=== PATIENT | male | born 1995 | race Caucasian/White ===

== ENCOUNTER 2020-08-29 17:52 | Inpatient (IN) ==
[2020-08-29 18:51] LABS: Albumin Level 4.2 gm/dl (3.4-5.0); Calcium 8.9 mg/dl (8.5-10.1); Est GFR (African American) 113.8; Est GFR (Non-African American) 98.2; Potassium 3.5 mmol/L (3.5-5.1)
[2020-08-29 19:01] LABS: Appearance Urine Clear (Clear); Bilirubin Urine Negative (Negative); Blood Urine Negative (Negative); Color Urine Yellow; Glucose Urine UA Negative (Negative); Ketones Urine Negative (Negative); Leukocyte Esterase Urine Negative (Negative); Nitrite Urine Negative (Negative); Protein Urine Negative (Negative); Specific Gravity Urine 1.028 (1.000-1.030); Urobilinogen Urine Negative (Negative); pH Urine 6.5 (4.5-7.5)
[2020-08-29 19:02] LABS: Albumin Globulin Ratio 1.4 (0.9-2); Bilirubin,Total 0.4 mg/dl (0.2-1); Globulin 3.1 gm/dl (2.5-4.0); Thyroid Stimulating Hormone 0.846 uIu/ml (0.300-4.500); Total Protein 7.3 gm/dl (6.4-8.2)
--- NOTE | 2020-08-29 19:02 | Emergency Department Note ---
History of Present Illness General Chief complaint: Mental Health Evaluation Stated complaint: MENTAL HEALTH, SUICIDAL THOUGHTS Time Seen by Provider: 08/29/20 18:04 Source: patient Mode of arrival: EMS Limitations: no limitations History of Present Illness Provider complaint: Suicidal ideation Maximum Pain Intensity: 0 This is a 25-year-old male who presents to the ED with a chief complaint of suicidal ideation. The mental health manager of case management here was contacted by caps. The patient has been seeing his counselor and recently did not perform well on a graduate review for his PhD and is not doing as well as he would like in school. He reported that he was suicidal with a plan of carbon monoxide poisoning. He states that he is feeling a little better now. He is made the statements yesterday. He was referred here for some inpatient evaluation due to his recent suicidal ideation. Patient has no other complaints at this time. He is on his computer doing some homework. Home Medications Home Medications Medication Instructions Recorded Confirmed Type No Known Home Medications 08/29/20 08/29/20 History Past Med/Surg History Social History Smoking Status: Current every day smoker Tobacco Type: Cigarettes Preferred Language: Chadian Feels Safe at Home: Yes Review of Systems A total of 10 systems reviewed and were otherwise negative Physical Exam Vital Signs Vital Signs - 24 hr 08/29/20 17:57 08/29/20 19:51 Temperature 37 C 36.9 C Temperature Source Oral Oral Pulse Rate 88 Pulse Rate [Left Finger] 64 Respiratory Rate 16 18 Respiratory Effort / Characteristics Non-Labored Spontaneous Respiratory Depth Normal Normal Respiratory Pattern Regular Blood Pressure 131/86 Blood Pressure [Left Arm] 127/84 Blood Pressure Mean 101 Blood Pressure Mean [Left Arm] 98 Blood Pressure Position Sitting Pulse Oximetry 96 95 Oxygen Delivery Method Room Air Room Air Sepsis Recent Fever Within 48 Hours No Sepsis New/Unexplained Change in Mental Status N/A Sepsis Action Taken by Nursing No Action Required CONSTITUTIONAL/VITAL SIGNS: Reviewed / noted above. GENERAL: Non-toxic in appearance. INTEGUMENTARY: Warm, dry, and [place]. HEAD: Normocephalic. EYES: without scleral icterus or trauma. ENT/OROPHARYNX: clear and moist. LYMPHADENOPATHY/NECK: Is supple without lymphadenopathy or meningismus. RESPIRATORY: Lungs clear and equal. CARDIOVASCULAR: Regular rate and rhythm. GI/ABDOMEN: Soft and nontender. No organomegaly or pulsatile mass. No rebound or guarding. Normal bowel sounds. EXTREMITIES: Warm and well perfused. BACK: No CVA tenderness. NEUROLOGICAL: Intact without focal deficits. PSYCHIATRIC: normal affect. MUSCULOSKELETAL: Normally developed with good muscle tone. TRIAGE NURSING DOCUMENTATION REVIEWED. Medical Decision Making Differential Diagnosis Differential includes toxic ingestions, self-mutilation, suicidal ideation, suicide attempt, depression. Medical Records Attestation: I reviewed the patient's medical records. Home Medications Current Medication List: was personally reviewed by me Laboratory Data Attestation: I reviewed the patient's lab results. Result diagrams: 08/29/20 18:22 08/29/20 18:22 Lab Results 08/29/20 08/29/20 08/29/20 Range/Units 18:22 18:22 18:22 WBC 9.30 (4.8-10.8) K/uL RBC 5.49 (4.7-6.1) M/uL Hgb 17.0 (14.0-18.0) g/dL Hct 48.5 (42-52) % MCV 88.3 (80-100) fL MCH 31.0 (25-34) pg MCHC 35.1 (32-36) g/dL RDW Std Deviation 39.0 (36.4-46.3) fL RDW Coeff of Jett 12.2 (11.5-14.5) % Plt Count 244 (130-400) K/uL MPV 11.2 H (7.4-10.4) fL Immature Gran % (Auto) 0.5 % Neut % (Auto) 75.2 % Lymph % (Auto) 16.2 % Pike % (Auto) 7.0 % Eos % (Auto) 0.9 % Baso % (Auto) 0.2 % Neut # (Auto) 6.99 H (1.4-6.5) K/uL Lymph # (Auto) 1.51 (1.2-3.4) K/uL Pike # (Auto) 0.65 H (0.11-0.59) K/uL Eos # (Auto) 0.08 (0-0.5) K/uL Baso # (Auto) 0.02 (0-0.2) K/uL Immature Gran # (Auto) 0.05 H (0.00-0.02) K/uL Sodium 140 (136-145) mmol/L Potassium 3.5 (3.5-5.1) mmol/L Chloride 108 H (98-107) mmol/L Carbon Dioxide 26 (21-32) mmol/L Anion Gap 6.0 (3-11) BUN 12 (7-18) mg/dl Creatinine 1.05 (0.6-1.4) mg/dl Est Cr Clr Drug Dosing 104.0 ml/min Est GFR ( Amer) 113.8 Est GFR (Non-Af Amer) 98.2 BUN/Creatinine Ratio 11.0 (10-20) Glucose 123 H (70-99) mg/dl Calcium 8.9 (8.5-10.1) mg/dl Total Bilirubin 0.4 (0.2-1) mg/dl AST 10 L (15-37) U/L ALT 25 (12-78) U/L Alkaline Phosphatase 74 (45-117) U/L Total Protein 7.3 (6.4-8.2) gm/dl Albumin 4.2 (3.4-5.0) gm/dl Globulin 3.1 (2.5-4.0) gm/dl Albumin/Globulin Ratio 1.4 (0.9-2) TSH 0.846 (0.300-4.500) uIu/ml Urine Color Urine Appearance (Clear) Urine pH (4.5-7.5) Ur Specific [place] (1.000-1.030) Urine Protein (Negative) Urine Glucose (UA) (Negative) Urine Ketones (Negative) Urine Blood (Negative) Urine Nitrite (Negative) Urine Bilirubin (Negative) Urine Urobilinogen (Negative) Ur Leukocyte Esterase (Negative) Salicylates < 1.7 L (2.8-20) mg/dl Urine Opiates Screen (Neg) Ur Methadone, Qual (Neg) Acetaminophen < 2 L (10-30) ug/ml Urine Barbiturates (Neg) Ur Phencyclidine (PCP) (Neg) U Amphetamin/Meth Scrn (Neg) MDMA (Ecstasy) Screen (Neg) U Benzodiazepines Scrn (Neg) Ur Cocaine Metabolite (Neg) U Marijuana (THC) Screen (Neg) Ethyl Alcohol mg/dL (0-3) mg/dl COVID-19 Eval Order SARS-CoV-2, RNA, NAAT (NEGATIVE) 08/29/20 08/29/20 08/29/20 Range/Units 18:22 18:45 18:45 WBC (4.8-10.8) K/uL RBC (4.7-6.1) M/uL Hgb (14.0-18.0) g/dL Hct (42-52) % MCV (80-100) fL MCH (25-34) pg MCHC (32-36) g/dL RDW Std Deviation (36.4-46.3) fL RDW Coeff of Jett (11.5-14.5) % Plt Count (130-400) K/uL MPV (7.4-10.4) fL Immature Gran % (Auto) % Neut % (Auto) % Lymph % (Auto) % [place]ike % (Auto) % Eos % (Auto) % Baso % (Auto) % Neut # (Auto) (1.4-6.5) K/uL Lymph # (Auto) (1.2-3.4) K/uL Pike # (Auto) (0.11-0.59) K/uL Eos # (Auto) (0-0.5) K/uL Baso # (Auto) (0-0.2) K/uL Immature Gran # (Auto) (0.00-0.02) K/uL Sodium (136-145) mmol/L Potassium (3.5-5.1) mmol/L Chloride (98-107) mmol/L Carbon Dioxide (21-32) mmol/L Anion Gap (3-11) BUN (7-18) mg/dl Creatinine (0.6-1.4) mg/dl Est Cr Clr Drug Dosing ml/min Est GFR ( Amer) Est GFR (Non-Af Amer) BUN/Creatinine Ratio (10-20) Glucose (70-99) mg/dl Calcium (8.5-10.1) mg/dl Total Bilirubin (0.2-1) mg/dl AST (15-37) U/L ALT (12-78) U/L Alkaline Phosphatase (45-117) U/L Total Protein (6.4-8.2) gm/dl Albumin (3.4-5.0) gm/dl Globulin (2.5-4.0) gm/dl Albumin/Globulin Ratio (0.9-2) TSH (0.300-4.500) uIu/ml Urine Color Yellow Urine Appearance Clear (Clear) Urine pH 6.5 (4.5-7.5) Ur Specific [place] 1.028 (1.000-1.030) Urine Protein Negative (Negative) Urine Glucose (UA) Negative (Negative) Urine Ketones Negative (Negative) Urine Blood Negative (Negative) Urine Nitrite Negative (Negative) Urine Bilirubin Negative (Negative) Urine Urobilinogen Negative (Negative) Ur Leukocyte Esterase Negative (Negative) Salicylates (2.8-20) mg/dl Urine Opiates Screen Neg (Neg) Ur Methadone, Qual Neg (Neg) Acetaminophen (10-30) ug/ml Urine Barbiturates Neg (Neg) Ur Phencyclidine (PCP) Neg (Neg) U Amphetamin/Meth Scrn Neg (Neg) MDMA (Ecstasy) Screen Neg (Neg) U Benzodiazepines Scrn Neg (Neg) Ur Cocaine Metabolite Neg (Neg) U Marijuana (THC) Screen Neg (Neg) Ethyl Alcohol mg/dL < 3.0 (0-3) mg/dl COVID-19 Eval Order SARS-CoV-2, RNA, NAAT (NEGATIVE) 08/29/20 08/29/20 Range/Units 20:35 20:35 WBC (4.8-10.8) K/uL RBC (4.7-6.1) M/uL Hgb (14.0-18.0) g/dL Hct (42-52) % MCV (80-100) fL MCH (25-34) pg MCHC (32-36) g/dL RDW Std Deviation (36.4-46.3) fL RDW Coeff of Jett (11.5-14.5) % Plt Count (130-400) K/uL MPV (7.4-10.4) fL Immature Gran % (Auto) % Neut % (Auto) % Lymph % (Auto) % [place] % (Auto) % Eos % (Auto) % Baso % (Auto) % Neut # (Auto) (1.4-6.5) K/uL Lymph # (Auto) (1.2-3.4) K/uL [place] # (Auto) (0.11-0.59) K/uL Eos # (Auto) (0-0.5) K/uL Baso # (Auto) (0-0.2) K/uL Immature Gran # (Auto) (0.00-0.02) K/uL Sodium (136-145) mmol/L Potassium (3.5-5.1) mmol/L Chloride (98-107) mmol/L Carbon Dioxide (21-32) mmol/L Anion Gap (3-11) BUN (7-18) mg/dl Creatinine (0.6-1.4) mg/dl Est Cr Clr Drug Dosing ml/min Est GFR ( Amer) Est GFR (Non-Af Amer) BUN/Creatinine Ratio (10-20) Glucose (70-99) mg/dl Calcium (8.5-10.1) mg/dl Total Bilirubin (0.2-1) mg/dl AST (15-37) U/L ALT (12-78) U/L Alkaline Phosphatase (45-117) U/L Total Protein (6.4-8.2) gm/dl Albumin (3.4-5.0) gm/dl Globulin (2.5-4.0) gm/dl Albumin/Globulin Ratio (0.9-2) TSH (0.300-4.500) uIu/ml Urine Color Urine Appearance (Clear) Urine pH (4.5-7.5) Ur Specific [place] (1.000-1.030) Urine Protein (Negative) Urine Glucose (UA) (Negative) Urine Ketones (Negative) Urine Blood (Negative) Urine Nitrite (Negative) Urine Bilirubin (Negative) Urine Urobilinogen (Negative) Ur Leukocyte Esterase (Negative) Salicylates (2.8-20) mg/dl Urine Opiates Screen (Neg) Ur Methadone, Qual (Neg) Acetaminophen (10-30) ug/ml Urine Barbiturates (Neg) Ur Phencyclidine (PCP) (Neg) U Amphetamin/Meth Scrn (Neg) MDMA (Ecstasy) Screen (Neg) U Benzodiazepines Scrn (Neg) Ur Cocaine Metabolite (Neg) U Marijuana (THC) Screen (Neg) Ethyl Alcohol mg/dL (0-3) mg/dl COVID-19 [facility], RNA, NAAT NEGATIVE (NEGATIVE) MDM Narrative Patient presents with some suicidal ideation as detailed above. He is currently cooperative and is willing to stay in the hospital. He is doing his homework. His exam was unremarkable. He was medically cleared. Blood work was unremarkable. Talk screen was negative. The patient was admitted to [facility]. Impression & Plan Depression with suicidal ideation Discharge Plan Visit Data Chief Complaint: Mental Health Evaluation Stated Complaint: MENTAL HEALTH, SUICIDAL THOUGHTS ED Provider: Kip Funk Discharge Problem: Depression with suicidal ideation Patient Disposition: Transfer Behavioral Health Fac Forms Stand Alone Forms: [facility], Suicide Prevention Resources Prescriptions Prescriptions: No Action No Known Home Medications RF: 0 Referrals [facility] [Primary Care Provider[facility] -
[2020-08-29 19:10] LABS: Basophils # (auto) 0.02 K/uL (0-0.2); Basophils % (auto) 0.2 %; Eosinophils # (auto) 0.08 K/uL (0-0.5); Eosinophils % (auto) 0.9 %; Hematocrit (blood only) 48.5 % (42-52); Immature Granulocytes # (auto) 0.05 K/uL (0.00-0.02); Immature Granulocytes % (auto) 0.5 %; Lymphocytes # (auto) 1.51 K/uL (1.2-3.4); Lymphocytes % (auto) 16.2 %; Mean Corpuscular Hgb Conc 35.1 g/dL (32-36); Mean Corpuscular Volume 88.3 fL (80-100); Mean Platelet Volume 11.2 fL (7.4-10.4); Monocytes # (auto) 0.65 K/uL (0.11-0.59); Neutrophils # (auto) 6.99 K/uL (1.4-6.5); Neutrophils % (auto) 75.2 %; Platelet Count 244 K/uL (130-400); RDW Coefficient of Variation 12.2 % (11.5-14.5); Red Blood Count 5.49 M/uL (4.7-6.1)
[2020-08-29 19:16] LABS: Acetaminophen < 2 ug/ml (10-30); Salicylate < 1.7 mg/dl (2.8-20)
[2020-08-29 19:19] LABS: Amphetamines+Metham, Urine Neg (Neg); Barbiturates, Urine Neg (Neg); Benzodiazepine, Urine Neg (Neg); Cocaine, Urine Neg (Neg); MDMA (Ecstacy), Urine Neg (Neg); Methadone, Urine Neg (Neg); Opiate, Urine Neg (Neg); Phencyclidine, Urine Neg (Neg)
[2020-08-29] MEDS ORDERED: SODIUM CHLORIDE 0.65% NA SOLN 45 ML (OCEAN) PRN (21:37)
[2020-08-29] MEDS ORDERED: hydrOXYzine HCl 25 MG TAB PO PRN ×2 (21:37)
[2020-08-29] MEDS ORDERED: ALUMINUM/MAGNESIUM SUSP 30 ML UDC PO PRN (21:37)
[2020-08-29] MEDS ORDERED: ACETAMINOPHEN 325 MG TAB PO PRN (21:37)
[2020-08-29] MEDS ORDERED: MAGNESIUM HYDROXIDE SUSP 30 ML UDC PO PRN (21:37)
[2020-08-29] MEDS ORDERED: BISMUTH SUBSALICYLATE LIQD 236 ML PO PRN (21:37)
[2020-08-29 22:44] VITALS: O2SAT 98
--- NOTE | 2020-08-30 07:59 | History & Physical ---
Date of Service August 30, 2020 Impression / Recommendations Impression 25 y/u male with a history of depression since fall 2018 who just started treatment with therapist last month, and is admitted with worsening depression and SI with multiple plans in the context of school and relationship stress. He is socially isolated here, as all supports are in [place]. He is concerned about not making enough money to get and provide for himself and his girlfriend/future . Inpatient treatment is medically necessary due to severity of symptoms and risk for suicide if discharged. (1) Suicidal ideation: 08/30 - Continue voluntary hospitalization and suicide checks for safety - Encouraged group attendance and participation, work on healthy coping skills and discharge safety plan. - Recommend family meeting with parents who live in [place]. (2) Depression: 08/30 - Reviewed diagnosis and treatment options, including medications and therapy. Discussed SSRIs, including escitalopram and sertraline. Reviewed risks, benefits, side effects, and what to expect from medication. He agreed to a trial of escitalopram, will start 10mg daily. - Reviewed sleep hygiene, and trial hydroxyzine 50mg hs. - Refer for outpatient psychiatric care, and coordinate with [facility] therapist. Depression Type: major depressive disorder Major depression recurrence: single episode Active/Remission status: currently active Major depression episode severity: severe Psychotic features: without psychotic features Qualified Code(s): F32.2 - Major depressive disorder, single episode, severe without psychotic features Risk Factors Assessment Male: Yes : No Do You Have Access To A Gun?: No Health Problems: No Mental Health Diagnoses: Yes Substance Use Disorders: No Previous Attempt: No Previous Psychiatric Hospitalization: No Hopelessness: Yes Smoker: Yes Protective Factors Assessment : No Responsible for Young Children: No Employed: No Stable Relationships: Yes Supportive Family: Yes Psychiatric History Identifying Data GRAHAM 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 Chief Complaint "The situation went pretty bad this week, so the therapist suggested that hospitalization should be the next step". History of Present Illness Patient presented to the ER on referral from [facility], after he reported suicidal thoughts with a plan to by carbon monoxide poisoning. He reports depression since fall 2018, with stress related to school and a recent meeting with her advisor where he was told he would lose his funding if he did not improve his work. He reported poor sleep and appetite, increased alcohol use (recently started drinking alone at home), low motivation, procrastination, negative thoughts, worthlessness, and thoughts to self injure by burning himself with cigarettes. 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 His therapist at [facility] completed a petitioning statement, but he agreed to sign in voluntarily. [facility] records reviewed; patient initially seen 08/07/2020 and has had 3 sessions, reported he was dwelling on negative thoughts since the fall, and was having difficulty focusing and completing tasks. 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 He reported stressors related to discrimination against [place] people, particularly on social media, related to the pandemic, which he dwells on for hours at a time. He registered for classes late in winter 2018, after a hold was placed on his account, and missed some classes. He is in a relationship X 6 years but his girlfriend is in [place] and he noted a sense of responsibility and difficulty supporting her from the [place]. His grandmother and grandfather in early 2019. He reported suicidal thoughts going on for 5 weeks, with thoughts to send a "last will" to his parents and girlfriend, and then poison himself with carbon monoxide, or to drive to a forest and hang himself or cut his wrists. Parents and girlfriend are protective. On my assessment he reports he saw his [facility] therapist yesterday and was feeling more suicidal after a meeting with his advisor the day prior did not go well. He had "a strong urge for suicide and hurting myself," and sleep has been poor for the past 1-2 months, recently getting only 2-3 hours a night. He denies access to guns and states that if he did have guns, "you probably wouldn't be talking to me right now." He ruminates at night, and also read on his cell phone. Appetite is decreased but he has gained a couple lbs. He reports anxiety related to not being able to perform well in school, no panic attacks. He reports perfectionistic tendencies, which can slow his work pace at times. Denies excessive cleaning, checking, bathing. He denies any history of marek, psychosis, PTSD. Denies thoughts of harming others and history of violence. Stressors including academic performance, and worries that he doesn't have enough money/income to get next summer as he has planned. He reports feeling "triggered" when his girlfriend sent him an article about a 22 y/o who was able to buy a house in [facility] and he felt it was "a punch in a face" as this person was able to buy a house in an expensive city and "I'm just here, doing nothing." He has good supports from friends, family and girlfriend, but all are in [place]. No local supports locally. His treatment goals are "to find out if I really have some depression, and do something for sleep." Past Psychiatric History Previous Psych History: Has never seen a psychiatrist or taken medications before. Just started therapy in 2019. Current Psychiatric Diagnosis: Depression Outpatient Services: Darrick rae at [facility]. Previous Psych Admissions: Denies Do You Have Access To A Gun?: No History of Previous Suicide Attempt: No Past Medication Trials: None Home Medications Home Medications Medication Instructions Recorded Confirmed Type No Known Home Medications 08/29/20 08/29/20 History Family History Family History of: Depression Family Mental Health History Comment: Mother - post depression Alcohol History Hx of Alcohol Use Over the Past 12 Months: Yes (recent increase in drinking and drinking alone) AUDIT Total Score: 1 Last drink was >1 month ago, states he drinks "when I have beer in the fridge," usually 2-3 times a month, typically no more than 2 drinks. Smoking Use Have You Smoked or Used Tobacco Products in the Last 30 Days: Yes tobacco type: cigarettes Smoking Status: Current every day smoker Smoking packs per day: 1 Substance History Hx of Prescription Med Misuse Over the Past 12 Months: No Hx of Over the Counter Med Misuse Over the Past 12 Months: No Hx of Inhalent Misuse Over the Past 12 Months: No Hx of Organic Substance Use Over the Past 12 Months: No Hx of Illegal Substances/Street Drug Use Over Past 12 Months: No Problems as a Result of Past Substance Use: None Identified Personal History Living Arrangements: Apartment Living Arrangements Comments: Off campus with one roommate. Childhood: Raised by both parents in [place], moved [place] the [place] in [place]. Only child. Parents live in [place]. Highest Grade Completed: College Highest Grade Completed Comment: Undergrad at [employer], graduated 2019. Attended MA engineering program at [employer] last year. 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 Working on a project to build an artifical neuron using biological components, and was hoping to get into industry.) Marital Status: Single (girlfriend of 6 years lives in [place], "we have some ups and downs." They are planning to get next summer.) Beliefs That Will Affect Care: None Current Legal Problems: No Hx Traumatic Life Events: Yes Psychological Trauma History Comment: Denies history of physical and sexual abuse. Bullied by a senior when he was a freshman in . Also had a "bad breakup" with a girlfriend when he was a sophomore in college. Patient History Medical History (Updated 08/30/20 @ 10:51 by Marlena Vallejo MD) Depression Suicidal ideation Social History Smoking Status: Current every day smoker Tobacco Type: Cigarettes Preferred Language: Mongolian Communication Ability: Effective Beliefs That Will Affect Care: None Feels Safe at Home: Yes Review of Systems Review of Systems: All systems reviewed & are unremarkable except as noted in Subjective Physical Exam Psychiatric: Orientation: alert and cooperative Apperance: appropriately dressed, appropriately groomed and appeared stated age male, dressed in jeans and t-shirt. Short mustache and goatee, wearing glasses. Seated in NAD. Eye Contact: + fair eye contact Motor Behavior: steady gait and station and no abnormal motor movements Speech: normal rate/rhythm/volume of speech Affect: + depressed affect, + anxious affect and mood congruent with affect Mood: + depressed mood and + anxious mood Thought Process: goal directed thought process Thought Content: + hopelessness, + worthlessness and + guilt Suicidal Thoughts: + reports suicidal thoughts Homicidal Thoughts: denies homicidal thoughts Hallucinations: no auditory hallucinations and no visual hallucinations Cognition: recent memory grossly intact, remote memory grossly intact, attention grossly intact and language grossly intact Estimated Intelligence: consistent with education level Insight: + fair insight Judgement: + fair judgement Vital Signs (Past 24 Hours): Last Vital Signs Temp 36.4 C L 08/30/20 06:39 Pulse 88 08/30/20 06:39 Resp 17 08/30/20 06:39 BP 117/80 08/30/20 06:39 Pulse Ox 98 08/29/20 22:35 Exam Statement: A physical exam was performed in the ER prior to admission to the unit by Dr. Kip Funk. I accept that physical as correct/medical clearance for the inpatient physical exam. Results & Data ([facility]) Laboratory Results Laboratory Results - last 24 hr 08/29/20 08/29/20 08/29/20 18:22 18:22 18:22 WBC 9.30 RBC 5.49 Hgb 17.0 Hct 48.5 MCV 88.3 MCH 31.0 MCHC 35.1 RDW Std Deviation 39.0 RDW Coeff of Jett 12.2 Plt Count 244 MPV 11.2 H Immature Gran % (Auto) 0.5 Neut % (Auto) 75.2 Lymph % (Auto) 16.2 Sully % (Auto) 7.0 Eos % (Auto) 0.9 Baso % (Auto) 0.2 Neut # (Auto) 6.99 H Lymph # (Auto) 1.51 Sully # (Auto) 0.65 H Eos # (Auto) 0.08 Baso # (Auto) 0.02 Immature Gran # (Auto) 0.05 H Sodium 140 Potassium 3.5 Chloride 108 H Carbon Dioxide 26 Anion Gap 6.0 BUN 12 Creatinine 1.05 Est Cr Clr Drug Dosing 104.0 Est GFR ( Amer) 113.8 Est GFR (Non-Af Amer) 98.2 BUN/Creatinine Ratio 11.0 Glucose 123 H Calcium 8.9 Total Bilirubin 0.4 AST 10 L ALT 25 Alkaline Phosphatase 74 Total Protein 7.3 Albumin 4.2 Globulin 3.1 Albumin/Globulin Ratio 1.4 TSH 0.846 Urine Color Urine Appearance Urine pH Ur Specific [place] Urine Protein Urine Glucose (UA) Urine Ketones Urine Blood Urine Nitrite Urine Bilirubin Urine Urobilinogen Ur Leukocyte Esterase Salicylates < 1.7 L Urine Opiates Screen Ur Methadone, Qual Acetaminophen < 2 L Urine Barbiturates Ur Phencyclidine (PCP) U Amphetamin/Meth Scrn MDMA (Ecstasy) Screen U Benzodiazepines Scrn Ur Cocaine Metabolite U Marijuana (THC) Screen Ethyl Alcohol mg/dL COVID-19 Eval Order SARS-CoV-2, RNA, NAAT 08/29/20 08/29/20 08/29/20 18:22 18:45 18:45 WBC RBC Hgb Hct MCV MCH MCHC RDW Std Deviation RDW Coeff of Jett Plt Count MPV Immature Gran % (Auto) Neut % (Auto) Lymph % (Auto) Sully % (Auto) Eos % (Auto) Baso % (Auto) Neut # (Auto) Lymph # (Auto) Sully # (Auto) Eos # (Auto) Baso # (Auto) Immature Gran # (Auto) Sodium Potassium Chloride Carbon Dioxide Anion Gap BUN Creatinine Est Cr Clr Drug Dosing Est GFR ( Amer) Est GFR (Non-Af Amer) BUN/Creatinine Ratio Glucose Calcium Total Bilirubin AST ALT Alkaline Phosphatase Total Protein Albumin Globulin Albumin/Globulin Ratio TSH Urine Color Yellow Urine Appearance Clear Urine pH 6.5 Ur Specific [place] 1.028 Urine Protein Negative Urine Glucose (UA) Negative Urine Ketones Negative Urine Blood Negative Urine Nitrite Negative Urine Bilirubin Negative Urine Urobilinogen Negative Ur Leukocyte Esterase Negative Salicylates Urine Opiates Screen Neg Ur Methadone, Qual Neg Acetaminophen Urine Barbiturates Neg Ur Phencyclidine (PCP) Neg U Amphetamin/Meth Scrn Neg MDMA (Ecstasy) Screen Neg U Benzodiazepines Scrn Neg Ur Cocaine Metabolite Neg U Marijuana (THC) Screen Neg Ethyl Alcohol mg/dL < 3.0 COVID-19 Eval Order SARS-CoV-2, RNA, NAAT 08/29/20 08/29/20 20:35 20:35 WBC RBC Hgb Hct MCV MCH MCHC RDW Std Deviation RDW Coeff of Jett Plt Count MPV Immature Gran % (Auto) Neut % (Auto) Lymph % (Auto) Sully % (Auto) Eos % (Auto) Baso % (Auto) Neut # (Auto) Lymph # (Auto) Sully # (Auto) Eos # (Auto) Baso # (Auto) Immature Gran # (Auto) Sodium Potassium Chloride Carbon Dioxide Anion Gap BUN Creatinine Est Cr Clr Drug Dosing Est GFR ( Amer) Est GFR (Non-Af Amer) BUN/Creatinine Ratio Glucose Calcium Total Bilirubin AST ALT Alkaline Phosphatase Total Protein Albumin Globulin Albumin/Globulin Ratio TSH Urine Color Urine Appearance Urine pH Ur Specific [place] Urine Protein Urine Glucose (UA) Urine Ketones Urine Blood Urine Nitrite Urine Bilirubin Urine Urobilinogen Ur Leukocyte Esterase Salicylates Urine Opiates Screen Ur Methadone, Qual Acetaminophen Urine Barbiturates Ur Phencyclidine (PCP) U Amphetamin/Meth Scrn MDMA (Ecstasy) Screen U Benzodiazepines Scrn Ur Cocaine Metabolite U Marijuana (THC) Screen Ethyl Alcohol mg/dL COVID-19 Eval Order Covid19 IDNow atMNDC SARS-CoV-2, RNA, NAAT NEGATIVE Current Inpatient Medications Current Inpatient Medications: Current Inpatient Medications Acetaminophen (Acetaminophen 325 Mg Tab) 650 mg PO Q4H PRN PRN Reason: Headache or Minor Fever Stop: 09/28/20 21:36 Al Hydrox/Mg Hydrox/Simethicone (Aluminum/Magnesium Susp 30 Ml Udc) 30 ml PO Q4H PRN PRN Reason: GI Upset Stop: 09/28/20 21:36 Last Admin: 08/29/20 22:55 Dose: 30 ml Documented by: Bismuth Subsalicylate (Bismuth Subsalicylate Liqd 236 Ml) 15 ml PO PRN PRN PRN Reason: Loose Stool Stop: 09/28/20 21:36 Hydroxyzine HCl (Hydroxyzine Hcl 25 Mg Tab) 50 mg PO HSZ PRN PRN Reason: Insomnia Stop: 09/28/20 21:36 Hydroxyzine HCl (Hydroxyzine Hcl 25 Mg Tab) 25 mg PO Q4H PRN PRN Reason: Anxiety Stop: 09/28/20 21:36 Magnesium Hydroxide (Magnesium Hydroxide Susp 30 Ml Udc) 30 ml PO DAILY PRN PRN Reason: Constipation Stop: 09/28/20 21:36 Miscellaneous (Remove Nicoderm Patch) 1 ea N/A DAILY@0859 [facility] Stop: 09/29/20 08:58 Nicotine (Nicotine 14 Mg/24 Hr Patch) 14 mg TD QAM [facility] Stop: 09/29/20 08:59 Sodium Chloride (Sodium Chloride 0.65% Na Soln 45 Ml ([place])) 1 - 2 sprays NA PRN PRN PRN Reason: Nasal Dryness/Congestion Stop: 09/28/20 21:36
[2020-08-30] MEDS: NICOTINE 14 MG/24 HR PATCH TD SCH (10:03)
[2020-08-30] MEDS ORDERED: ESCITALOPRAM OXALATE 10 MG TAB PO SCH (11:00)
[2020-08-30] MEDS: ESCITALOPRAM OXALATE 10 MG TAB PO SCH (12:54)
[2020-08-31] MEDS: ESCITALOPRAM OXALATE 10 MG TAB PO SCH (08:39)
[2020-08-31] MEDS: NICOTINE 14 MG/24 HR PATCH TD SCH (08:40)
--- NOTE | 2020-08-31 13:23 | Psychiatric Progress Note ---
Date of Service August 31, 2020 Impression / Recommendations Impression 25 y/u male with a history of depression since fall 2018 who just started treatment with therapist last month, and is admitted with worsening depression and SI with multiple plans in the context of school and relationship stress. He is socially isolated here, as all supports are in [place]. He is concerned about not making enough money to get and provide for himself and his girlfriend/future . Pt is open to a family meeting with his parents. Inpatient treatment is medically necessary due to severity of symptoms and risk for suicide if discharged. (1) Suicidal ideation: 08/30 - Continue voluntary hospitalization and suicide checks for safety - Encouraged group attendance and participation, work on healthy coping skills and discharge safety plan. - Recommend family meeting with parents who live in [place]. 08/31 - Denies active SI today, but reports continued concern regarding how he would deal with recurrence of SI - Pt admits he is not yet able to contract for safety outside of the hospital setting (2) Depression: 08/30 - Reviewed diagnosis and treatment options, including medications and therapy. Discussed SSRIs, including escitalopram and sertraline. Reviewed risks, benefits, side effects, and what to expect from medication. He agreed to a trial of escitalopram, will start 10mg daily. - Reviewed sleep hygiene, and trial hydroxyzine 50mg hs. - Refer for outpatient psychiatric care, and coordinate with [facility] therapist. 08/31 - Continue current dosage of escitalopram 10mg qAM - titrating as tolerated/indicated, patient reported dizziness after taking the medication this morning which spontaneously resolved - Pt tolerated hydroxyzine last evening for sleep. We did discuss melatonin today, and patient was agreeable with having this available as an option as well. Reviewed sleep hygiene and behavioral strategies that will reinforce positive sleep cycle. 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 Chief Complaint "Eh, I was a little dizzy earlier today." Review of Systems Notes Constitutional: reports some dizziness after taking escitalopram this morning, continued sleep difficulties Cardiovascular: denied Respiratory: denied Gastrointestinal: denied Neurological: denied Psychiatric: denies symptoms other than stated above Total of at least 10 systems reviewed, pertinent positives as above and in HPI. Sleep Information Total Hours of Sleep: 6.75 Meal Information Percent Meal Consumed - Breakfast: 90 Percent Meal Consumed - Lunch: 100 Percent Meal Consumed - Dinner: 100 Subjective Subjective Patient was seen & assessed and interval progress reviewed with treatment team. Staff report the patient has been a bit withdrawn, but is attending groups. He continues to report increased anxiety related to school stress and poor academic performance. Pt rated his mood a 7/10 and "numb" last evening. Pt was seen today to assess progress since admission. Pt does admit "I was a little dizzy earlier today." He states this began after taking his dose of escitalopram, but did spontaneously resolve. Pt appears somewhat anxiety, and admits to improved mood but still feeling a bit overwhelmed with school tasks. Pt reports "I think about what I need to do when I get out. Like not making an actual list, but thinking through subjects I need to focus on." We discussed importance of group programming with regard to development of coping skills and learning stress management techniques that will help patient transition back to school work after discharge. Pt states that he is happy his advisor is supportive and is hoping medications help him to improve his academic performance. Pt denies SI since admission, but does state he is worried about how he would handle the thoughts if they returned. Pt is scheduled for a family meeting with his parents tomorrow morning. He states sleep continues to be a concern. We discussed continued availability of hydroxyzine, but also discussed sleep hygiene techniques as well as the option of melatonin. Pt did request to have melatonin available for use if needed. He denied other needs and concerns at this time. Physical Exam Psychiatric Orientation: alert, oriented x 3 and cooperative Apperance: appropriately dressed and appropriately groomed Eye Contact: good eye contact Motor Behavior: steady gait and station and no abnormal motor movements Speech: normal rate/rhythm/volume of speech Affect: + anxious affect and mood congruent with affect Mood: + depressed mood and + anxious mood does admit to some mild improvements in mood and anxiety level Thought Process: goal directed thought process and clear/coherent thought process Thought Content: reality based without delusions; no hopelessness Suicidal Thoughts: denies suicidal thoughts and denies suicidal intent Homicidal Thoughts: denies homicidal thoughts Hallucinations: no auditory hallucinations and no visual hallucinations Cognition: recent memory grossly intact, attention grossly intact and language grossly intact Estimated Intelligence: consistent with education level Insight: + fair insight Judgement: + fair judgement Vital Signs (Past 24 Hours) Last Vital Signs Temp 36.4 C L 08/31/20 06:37 Pulse 67 08/31/20 06:37 Resp 17 08/31/20 06:37 BP 109/70 08/31/20 06:37 Pulse Ox 98 08/29/20 22:35 Results & Data ([facility]) Current Inpatient Medications Current Inpatient Medications: Current Inpatient Medications Acetaminophen (Acetaminophen 325 Mg Tab) 650 mg PO Q4H PRN PRN Reason: Headache or Minor Fever Stop: 09/28/20 21:36 Al Hydrox/Mg Hydrox/Simethicone (Aluminum/Magnesium Susp 30 Ml Udc) 30 ml PO Q4H PRN PRN Reason: GI Upset Stop: 09/28/20 21:36 Last Admin: 08/29/20 22:55 Dose: 30 ml Documented by: Bismuth Subsalicylate (Bismuth Subsalicylate Liqd 236 Ml) 15 ml PO PRN PRN PRN Reason: Loose Stool Stop: 09/28/20 21:36 Escitalopram Oxalate (Escitalopram Oxalate 10 Mg Tab) 10 mg PO QAM [facility] Stop: 09/30/20 08:59 Last Admin: 08/31/20 08:39 Dose: 10 mg Documented by: Hydroxyzine HCl (Hydroxyzine Hcl 25 Mg Tab) 50 mg PO HSZ PRN PRN Reason: Insomnia Stop: 09/28/20 21:36 Last Admin: 08/30/20 22:36 Dose: 50 mg Documented by: Hydroxyzine HCl (Hydroxyzine Hcl 25 Mg Tab) 25 mg PO Q4H PRN PRN Reason: Anxiety Stop: 09/28/20 21:36 Magnesium Hydroxide (Magnesium Hydroxide Susp 30 Ml Udc) 30 ml PO DAILY PRN PRN Reason: Constipation Stop: 12/04/20 21:36 Miscellaneous (Remove Nicoderm Patch) 1 ea N/A DAILY@0859 [facility] Stop: 09/29/20 08:58 Last Admin: 08/31/20 08:41 Dose: Not Given Documented by: Nicotine (Nicotine 14 Mg/24 Hr Patch) 14 mg TD QAM [facility] Stop: 09/29/20 08:59 Last Admin: 08/31/20 08:40 Dose: Not Given Documented by: Sodium Chloride (Sodium Chloride 0.65% Na Soln 45 Ml ([place])) 1 - 2 sprays NA PRN PRN PRN Reason: Nasal Dryness/Congestion Stop: 09/28/20 21:36 Mental Health & Subst Abuse Tx Psychiatrist Name of Psychiatrist: Dr Jackson Psychiatrist's Psychiatric Appointment Comment: [address] [place] [address] Therapist Name of Therapist: Andrei SYED Therapist's Date of Therapist Appointment: 09/06/20 Time of Therapist Appointment: 9:00am Therapy Appointment Comment: [address] [place] [address] Ring Sewer Name of Ring Sewer: None Post Discharge Appointments Primary Care Physician Name Of Family Doctor: [facility] (1) Depression Active/Remission status: currently active Depression Type: major depressive disorder Major depression episode severity: severe Major depression recurrence: single episode Psychotic features: without psychotic features Qualified Code(s): F32.2 - Major depressive disorder, single episode, severe without psychotic features
[2020-08-31] MEDS: MELATONIN 3 MG TAB PO PRN (21:56)
--- NOTE | 2020-09-01 07:53 | Psychiatric Progress Note ---
Date of Service September 01, 2020 Impression / Recommendations Impression 25 y/o male with a history of depression since fall 2018 who just started treatment with therapist last month, and is admitted with worsening depression and SI with multiple plans in the context of school and relationship stress. He is socially isolated here, as all supports are in [place]. He had a long family meeting with his parents and the director of social services, was able to tell his parents about his struggles with depression and SI, which was difficult for him. He has had some improvement in mood and anxiety symptoms, but inpatient treatment remains medically necessary due to severity of symptoms and risk for suicide if discharged. (1) Suicidal ideation: 08/30 - Continue voluntary hospitalization and suicide checks for safety - Encouraged group attendance and participation, work on healthy coping skills and discharge safety plan. - Recommend family meeting with parents who live in [place]. 08/31 - Denies active SI today, but reports continued concern regarding how he would deal with recurrence of SI - Pt admits he is not yet able to contract for safety outside of the hospital setting 09/01 - Family meeting with parents in [place]. (2) Depression: 08/30 - Reviewed diagnosis and treatment options, including medications and therapy. Discussed SSRIs, including escitalopram and sertraline. Reviewed risks, benefits, side effects, and what to expect from medication. He agreed to a trial of escitalopram, will start 10mg daily. - Reviewed sleep hygiene, and trial hydroxyzine 50mg hs. - Refer for outpatient psychiatric care, and coordinate with [facility] therapist. 08/31 - Continue current dosage of escitalopram 10mg qAM - titrating as tolerated/indicated, patient reported dizziness after taking the medication this morning which spontaneously resolved - Pt tolerated hydroxyzine last evening for sleep. We did discuss melatonin today, and patient was agreeable with having this available as an option as well. Reviewed sleep hygiene and behavioral strategies that will reinforce positive sleep cycle. - Family meeting with parents scheduled for tomorrow morning via phone - Pt is reportedly able to continue both therapy and medication management through [facility] 09/01 - Continue escitalopram 10mg daily, and continue to work on healthy coping skills and discharge planning. - Discussed option of switching medication to HS as he reports his head feels heavy, but he wants to wait and see how he feels today/tomorrow before changing it. 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 Chief Complaint "It was a long meeting...it went pretty well". Review of Systems Sleep Information Total Hours of Sleep: 7.75 Meal Information Percent Meal Consumed - Breakfast: 90 Percent Meal Consumed - Lunch: 100 Percent Meal Consumed - Dinner: 100 Subjective Subjective Patient was seen & assessed and interval progress reviewed with nursing and social work. Staff report he is attending groups, and had a family meeting with his parents and the director of social services this morning. Melatonin was started last night for sleep. On my assessment, he reports the family meeting was difficult, as he didn't really want to do it, as he usually pushes them away. He was able to be forthcoming with them, and says his parents responded positively, as they are glad he is safe and is getting help. He reports better sleep last night with melatonin, fell asleep more easily, but still woke up multiple times. Mood is "lifting up," although still suboptimal. Anxiety continues but is less intense, still with racing thoughts, worries. Having less negative thoughts, "but still not having and positive thoughts." He denies SI and feels safe here. He thinks groups are helping, as well as medication. He has been processing self esteem issues, feels he has "self fulfilling prophecies, I think that I'm not good, and then when I'm not doing good, I think that's true." Discussed the tenets of CBT. He reports "my head is heavy" since starting the medication, literally feels his head is heavier. Denies other side effects. Appetite remains suppressed, feels he has to force himself to eat. At home was not eating as much as it felt overwhelming to prepare meals and clean up from them, but even here in the hospital he doesn't want to eat. Denies any food specific patterns. He is eating here, but feels he takes him longer to eat than it should, and he doesn't enjoy it. Physical Exam Psychiatric Orientation: alert and cooperative Apperance: appropriately dressed, appropriately groomed and appeared stated age Eye Contact: good eye contact Motor Behavior: steady gait and station and no abnormal motor movements Speech: normal rate/rhythm/volume of speech Affect: + depressed affect and + blunted affect Thought Process: goal directed thought process Thought Content: reality based without delusions Suicidal Thoughts: denies suicidal thoughts Homicidal Thoughts: denies homicidal thoughts Hallucinations: no auditory hallucinations Cognition: recent memory grossly intact, remote memory grossly intact, attention grossly intact and language grossly intact Estimated Intelligence: consistent with education level Insight: good insight Judgement: good judgement Vital Signs (Past 24 Hours) Last Vital Signs Temp 36.5 C 09/01/20 06:49 Pulse 63 09/01/20 06:50 Resp 16 09/01/20 06:49 BP 100/66 09/01/20 06:50 Pulse Ox 98 08/29/20 22:35 Results & Data ([facility]) Current Inpatient Medications Current Inpatient Medications: Current Inpatient Medications Acetaminophen (Acetaminophen 325 Mg Tab) 650 mg PO Q4H PRN PRN Reason: Headache or Minor Fever Stop: 09/28/20 21:36 Al Hydrox/Mg Hydrox/Simethicone (Aluminum/Magnesium Susp 30 Ml Udc) 30 ml PO Q4H PRN PRN Reason: GI Upset Stop: 09/28/20 21:36 Last Admin: 08/29/20 22:55 Dose: 30 ml Documented by: Bismuth Subsalicylate (Bismuth Subsalicylate Liqd 236 Ml) 15 ml PO PRN PRN PRN Reason: Loose Stool Stop: 09/28/20 21:36 Escitalopram Oxalate (Escitalopram Oxalate 10 Mg Tab) 10 mg PO QAM [facility] Stop: 09/30/20 08:59 Last Admin: 08/31/20 08:39 Dose: 10 mg Documented by: Hydroxyzine HCl (Hydroxyzine Hcl 25 Mg Tab) 50 mg PO HSZ PRN PRN Reason: Insomnia Stop: 09/28/20 21:36 Last Admin: 08/30/20 22:36 Dose: 50 mg Documented by: Hydroxyzine HCl (Hydroxyzine Hcl 25 Mg Tab) 25 mg PO Q4H PRN PRN Reason: Anxiety Stop: 09/28/20 21:36 Magnesium Hydroxide (Magnesium Hydroxide Susp 30 Ml Udc) 30 ml PO DAILY PRN PRN Reason: Constipation Stop: 09/28/20 21:36 Melatonin (Melatonin 3 Mg Tab) 6 mg PO HS PRN PRN Reason: Sleep Stop: 09/30/20 13:48 Last Admin: 08/31/20 21:56 Dose: 6 mg Documented by: Miscellaneous (Remove Nicoderm Patch) 1 ea N/A DAILY@0859 [facility] Stop: 09/29/20 08:58 Last Admin: 08/31/20 08:41 Dose: Not Given Documented by: Nicotine (Nicotine 14 Mg/24 Hr Patch) 14 mg TD QAM [facility] Stop: 09/29/20 08:59 Last Admin: 08/31/20 08:40 Dose: Not Given Documented by: Sodium Chloride (Sodium Chloride 0.65% Na Soln 45 Ml ([place])) 1 - 2 sprays NA PRN PRN PRN Reason: Nasal Dryness/Congestion Stop: 09/28/20 21:36 Mental Health & Subst Abuse Tx Psychiatrist Name of Psychiatrist: KUNAL Milner Psychiatrist's Psychiatric Appointment Comment: [address] [place] [address] Therapist Name of Therapist: KUNAL Hollingsworth Therapist's Date of Therapist Appointment: 09/06/20 Time of Therapist Appointment: 9:00am Therapy Appointment Comment: [address] [place] [address] Dewatering Filtering Supervisor Name of Dewatering Filtering Supervisor: Student Care and Advocacy - [facility] Phone Number for Dewatering Filtering Supervisor: [phone] Date of Appointment with Dewatering Filtering Supervisor: 09/04/20 Time of Appointment with Dewatering Filtering Supervisor: 11:00 a.m. Case Management Appointment Comment: Will call you Post Discharge Appointments Primary Care Physician Name Of Family Doctor: [facility] Primary Care Provider Appointment Comment: Please follow up as needed Contact Information Discharge Discharge Address: Permanent Address: [address] [place] [id number] (1) Depression Active/Remission status: currently active Depression Type: major depressive disorder Major depression episode severity: severe Major depression recurrence: single episode Psychotic features: without psychotic features Qualified Code(s): F32.2 - Major depressive disorder, single episode, severe without psychotic features
[2020-09-01] MEDS: ESCITALOPRAM OXALATE 10 MG TAB PO SCH (09:10)
[2020-09-01] MEDS: NICOTINE 14 MG/24 HR PATCH TD SCH (09:11)
[2020-09-01] MEDS: MELATONIN 3 MG TAB PO PRN (22:09)
--- NOTE | 2020-09-02 06:27 | Psychiatric Progress Note ---
Date of Service September 02, 2020 Impression / Recommendations Impression 25 y/o male with a history of depression since fall 2018 who just started treatment with therapist last month, and is admitted with worsening depression and SI with multiple plans in the context of school and relationship stress. He is socially isolated here, as all supports are in [place]. He had a long family meeting with his parents and the social insurance specialist, was able to tell his parents about his struggles with depression and SI, which was difficult for him. He has had some improvement in mood and anxiety symptoms, but inpatient treatment remains medically necessary due to severity of symptoms and risk for suicide if discharged. (1) Suicidal ideation: 08/30 - Continue voluntary hospitalization and suicide checks for safety - Encouraged group attendance and participation, work on healthy coping skills and discharge safety plan. - Recommend family meeting with parents who live in [place]. 08/31 - Denies active SI today, but reports continued concern regarding how he would deal with recurrence of SI - Pt admits he is not yet able to contract for safety outside of the hospital setting 09/01 - Family meeting with parents in [place]. (2) Depression: 08/30 - Reviewed diagnosis and treatment options, including medications and therapy. Discussed SSRIs, including escitalopram and sertraline. Reviewed risks, benefits, side effects, and what to expect from medication. He agreed to a trial of escitalopram, will start 10mg daily. - Reviewed sleep hygiene, and trial hydroxyzine 50mg hs. - Refer for outpatient psychiatric care, and coordinate with [facility] therapist. 08/31 - Continue current dosage of escitalopram 10mg qAM - titrating as tolerated/indicated, patient reported dizziness after taking the medication this morning which spontaneously resolved - Pt tolerated hydroxyzine last evening for sleep. We did discuss melatonin today, and patient was agreeable with having this available as an option as well. Reviewed sleep hygiene and behavioral strategies that will reinforce positive sleep cycle. - Family meeting with parents scheduled for tomorrow morning via phone - Pt is reportedly able to continue both therapy and medication management through [facility] 09/01 - Continue escitalopram 10mg daily, and continue to work on healthy coping skills and discharge planning. - Discussed option of switching medication to HS as he reports his head feels heavy, but he wants to wait and see how he feels today/tomorrow before changing it. 09/02 - Move escitalopram to HS to minimize daytime sedation. 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 Chief Complaint "More alert this morning". Review of Systems Sleep Information Total Hours of Sleep: 6.5 Meal Information Percent Meal Consumed - Breakfast: 100 Percent Meal Consumed - Lunch: 100 Percent Meal Consumed - Dinner: 100 Subjective Subjective Patient was seen & assessed and interval progress reviewed with nursing and social work. Staff report he had a long family meeting with the social insurance specialist and his parents, was able to open up to his parents about his mental health issues, and his parents were supportive. Today he reports he slept less overnight but it was better quality sleep. He feels more alert today, which he thinks could be due to declining the escitalopram this morning, as we'd discussed moving it to bedtime yesterday and he'd like to try that. Groups have been helpful, as has being around others. He feels "more active" today and mood is improving. He continues to have anxiety and negative thoughts, was ruminating on talking to his advisor after he's discharged, and worrying about his response. He denies SI and is hoping he will be ready to leave in the next couple of days, but does not yet feel ready to leave, saying he is concerned that mood is still not stable and that he will have "major mood" swings in response to minor stressors. Physical Exam Psychiatric Orientation: alert and cooperative Apperance: appropriately dressed, appropriately groomed and appeared stated age Eye Contact: good eye contact Motor Behavior: steady gait and station and no abnormal motor movements Speech: normal rate/rhythm/volume of speech Affect: + blunted affect "More active." Thought Process: goal directed thought process Thought Content: + cognitive distortions and + self deprecation Suicidal Thoughts: denies suicidal thoughts Homicidal Thoughts: denies homicidal thoughts Hallucinations: no auditory hallucinations Cognition: recent memory grossly intact, attention grossly intact and language grossly intact Estimated Intelligence: consistent with education level Insight: + fair insight Judgement: + fair judgement Vital Signs (Past 24 Hours) Last Vital Signs Temp 36.8 C 09/01/20 20:00 Pulse 63 09/01/20 06:50 Resp 16 09/01/20 06:49 BP 100/66 09/01/20 06:50 Pulse Ox 98 08/29/20 22:35 Results & Data ([facility]) Current Inpatient Medications Current Inpatient Medications: Current Inpatient Medications Acetaminophen (Acetaminophen 325 Mg Tab) 650 mg PO Q4H PRN PRN Reason: Headache or Minor Fever Stop: 09/28/20 21:36 Al Hydrox/Mg Hydrox/Simethicone (Aluminum/Magnesium Susp 30 Ml Udc) 30 ml PO Q4H PRN PRN Reason: GI Upset Stop: 09/28/20 21:36 Last Admin: 08/29/20 22:55 Dose: 30 ml Documented by: Bismuth Subsalicylate (Bismuth Subsalicylate Liqd 236 Ml) 15 ml PO PRN PRN PRN Reason: Loose Stool Stop: 09/28/20 21:36 Escitalopram Oxalate (Escitalopram Oxalate 10 Mg Tab) 10 mg PO QAM [facility] Stop: 09/30/20 08:59 Last Admin: 09/01/20 09:10 Dose: 10 mg Documented by: Hydroxyzine HCl (Hydroxyzine Hcl 25 Mg Tab) 50 mg PO HSZ PRN PRN Reason: Insomnia Stop: 09/28/20 21:36 Last Admin: 08/30/20 22:36 Dose: 50 mg Documented by: Hydroxyzine HCl (Hydroxyzine Hcl 25 Mg Tab) 25 mg PO Q4H PRN PRN Reason: Anxiety Stop: 09/28/20 21:36 Magnesium Hydroxide (Magnesium Hydroxide Susp 30 Ml Udc) 30 ml PO DAILY PRN PRN Reason: Constipation Stop: 09/28/20 21:36 Melatonin (Melatonin 3 Mg Tab) 6 mg PO HS PRN PRN Reason: Sleep Stop: 09/30/20 13:48 Last Admin: 09/01/20 22:09 Dose: 6 mg Documented by: Miscellaneous (Remove Nicoderm Patch) 1 ea N/A DAILY@0859 [facility] Stop: 09/29/20 08:58 Last Admin: 09/01/20 09:11 Dose: Not Given Documented by: Nicotine (Nicotine 14 Mg/24 Hr Patch) 14 mg TD QAM [facility] Stop: 09/29/20 08:59 Last Admin: 09/01/20 09:11 Dose: Not Given Documented by: Sodium Chloride (Sodium Chloride 0.65% Na Soln 45 Ml ([place])) 1 - 2 sprays NA PRN PRN PRN Reason: Nasal Dryness/Congestion Stop: 09/28/20 21:36 Mental Health & Subst Abuse Tx Psychiatrist Name of Psychiatrist: KUNAL Milner Psychiatrist's Psychiatric Appointment Comment: [address] [place] [address] Therapist Name of Therapist: KUNAL Hollingsworth Therapist's Date of Therapist Appointment: 09/06/20 Time of Therapist Appointment: 9:00am Therapy Appointment Comment: [address] [place] [address] Beaver Trapper Name of Beaver Trapper: Student Leidy and Advocacy - [facility] Phone Number for Beaver Trapper: [phone] Date of Appointment with Beaver Trapper: 09/04/20 Time of Appointment with Beaver Trapper: 11:00 a.m. Case Management Appointment Comment: Will call you Post Discharge Appointments Primary Care Physician Name Of Family Doctor: [facility] Primary Care Provider Appointment Comment: Please follow up as needed Contact Information Discharge Discharge Address: Permanent Address: [address] [place] [address] (1) Depression Active/Remission status: currently active Depression Type: major depressive disorder Major depression episode severity: severe Major depression recurrence: single episode Psychotic features: without psychotic features Qualified Code(s): F32.2 - Major depressive disorder, single episode, severe without psychotic features
[2020-09-02] MEDS: NICOTINE 14 MG/24 HR PATCH TD SCH (10:01)
[2020-09-02] MEDS: MELATONIN 3 MG TAB PO PRN (20:52)
[2020-09-02] MEDS ORDERED: ESCITALOPRAM OXALATE 10 MG TAB PO SCH (22:00)
[2020-09-03 06:34] VITALS: BP 108/71; TEMP 97.9
--- NOTE | 2020-09-03 10:21 | Discharge Summary ---
Date of Service September 03, 2020 History of Present Illness Patient presented to the ER on referral from [facility], after he reported suicidal thoughts with a plan to by carbon monoxide poisoning. He reports depression since fall 2018, with stress related to school and a recent meeting with her advisor where he was told he would lose his funding if he did not improve his work. He reported poor sleep and appetite, increased alcohol use (recently started drinking alone at home), low motivation, procrastination, negative thoughts, worthlessness, and thoughts to self injure by burning himself with cigarettes. 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 His therapist at [facility] completed a petitioning statement, but he agreed to sign in voluntarily. [facility] records reviewed; patient initially seen 08/07/2020 and has had 3 sessions, reported he was dwelling on negative thoughts since the fall, and was having difficulty focusing and completing tasks. 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 He reported stressors related to discrimination against Indian people, particularly on social media, related to the pandemic, which he dwells on for hours at a time. He registered for classes late in winter 2018, after a hold was placed on his account, and missed some classes. He is in a relationship X 6 years but his girlfriend is in [place] and he noted a sense of responsibility and difficulty supporting her from the [place]. His grandmother and grandfather in early 2019. He reported suicidal thoughts going on for 5 weeks, with thoughts to send a "last will" to his parents and girlfriend, and then poison himself with carbon monoxide, or to drive to a forest and hang himself or cut his wrists. Parents and girlfriend are protective. On my assessment he reports he saw his [facility] therapist yesterday and was feeling more suicidal after a meeting with his advisor the day prior did not go well. He had "a strong urge for suicide and hurting myself," and sleep has been poor for the past 1-2 months, recently getting only 2-3 hours a night. He denies access to guns and states that if he did have guns, "you probably wouldn't be talking to me right now." He ruminates at night, and also read on his cell phone. Appetite is decreased but he has gained a couple lbs. He reports anxiety related to not being able to perform well in school, no panic attacks. He reports perfectionistic tendencies, which can slow his work pace at times. Denies excessive cleaning, checking, bathing. He denies any history of marek, psychosis, PTSD. Denies thoughts of harming others and history of violence. Stressors including academic performance, and worries that he doesn't have enough money/income to get next summer as he has planned. He reports feeling "triggered" when his girlfriend sent him an article about a 22 y/o who was able to buy a house in [facility] and he felt it was "a punch in a face" as this person was able to buy a house in an expensive city and "I'm just here, doing nothing." He has good supports from friends, family and girlfriend, but all are in [place]. No local supports locally. His treatment goals are "to find out if I really have some depression, and do something for sleep." Physical Exam Psychiatric Orientation: alert, oriented x 3 and cooperative Apperance: appropriately dressed, appropriately groomed and appeared stated age Eye Contact: good eye contact Motor Behavior: steady gait and station and no abnormal motor movements Speech: normal rate/rhythm/volume of speech Affect: + anxious affect (mildly anxious) Mood: + anxious mood (reports anticipatory anxiety related to discharge) Thought Process: goal directed thought process, clear/coherent thought process and thought association intact Thought Content: reality based without delusions; no hopelessness and no worthlessness Suicidal Thoughts: denies suicidal thoughts, denies suicidal plan and denies suicidal intent Homicidal Thoughts: denies homicidal thoughts Hallucinations: no auditory hallucinations and no visual hallucinations Cognition: recent memory grossly intact, attention grossly intact and language grossly intact Estimated Intelligence: consistent with education level Insight: + fair insight Judgement: + fair judgement Vital Signs (Past 24 Hours) Last Vital Signs Temp 36.6 C 09/03/20 06:32 Pulse 77 09/03/20 06:33 Resp 16 09/03/20 06:32 BP 108/71 09/03/20 06:33 Pulse Ox 98 08/29/20 22:35 Principal Diagnosis - Major depressive disorder, recurrent, severe, without psychotic features Psychiatric Data 25 [id number] with a history of depression since fall 2018 who just started treatment with therapist a month prior to this admission, presented to the ED with worsening depression and SI with multiple plans in the context of school and relationship stress. He was admitted voluntarily for inpatient psychiatric treatment on 08/29/2020. Pt did admit that he is socially isolated here, as many of his supports are in [place]. He did admit to feelings of depression and was agreeable with starting medications to target these symptoms. Pt was started on escitalopram, which was titrated to 10mg prior to discharge and was offered in the evenings due to patient's reports of increased daytime fatigue. He had a long family meeting with his parents and the social work nurse, and was able to tell his parents about his struggles with depression and SI, which was difficult for him. He has demonstrated improvement in mood and anxiety symptoms, and is able to report resolution of SI. 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 Pt will likely discuss his intentions of his degree over the winter break with his family. He was willing for communication with Student Care and Advocacy through the [facility], which will be a helpful resource for him in this process. Pt did agree to continued outpatient psychiatric treatment through [facility]. He reported feeling as though he has met his treatment goals and did complete a written safety plan prior to discharge. Based on review of patient's case and their current presentation, risk of harm to self or others is no longer perceived to be acute. Management of symptoms on an outpatient basis seems the most appropriate and least restrictive setting. Pt seems appropriate for discharge with recommendation for consistent follow-up with outpatient psychiatric prescriber and therapist. Pt verbalized understanding of discharge plan reviewed and is agreeable with plan to be discharged home today. Day of Discharge Assessment Patient's case was reviewed and discussed during treatment team. Staff report the patient continues to participate in group programming and has been doing well. He rated his mood a 7/10 last evening. Pt was seen today to assess readiness for discharge. Pt admits that he experienced dizziness this morning, despite escitalopram being moved to HS dosing last evening. Pt reports plan to continue with medication at discharge, and we reviewed that if this is in fact related to the medication, it is likely to resolve. Pt reports improvement in ability to fall asleep, but is still experiencing program support specialist awakening. After reviewing options, the patient expresses a desire to continue melatonin for sleep at this time. Pt denied continued SI or especially negative thinking. 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 Pt denies any concerns surrounding the idea of discharge today. He reports feeling as though he met his treatment goals and is ready to return home. ROS: Constitutional: reports ongoing morning dizziness, program support specialist awakening Cardiovascular: denied Respiratory: denied Gastrointestinal: denied Neurological: denied Psychiatric: denies symptoms other than stated above Total of at least 10 systems reviewed, pertinent positives as above and in HPI. Transition of Care Transition Of Care Record: was reviewed with the patient Advance Directives Advance Directives Information Provided: No Advance Directives: No Mental Health Advance Directive: No Advance Directives on File: No Living Will: No Power of Engineering Systems Analyst: No Advance Directives Reason:: Declines as Mental Health Visit. Risk Factors Assessment Presenting risk factors reviewed on discharge. Precipitating stressors mitigated by: admission for inpatient psychiatric observation and treatment, initiation of medications to target presenting symptoms, attendance of therapeutic treatment groups, development of healthy and effective coping strategies, involvement of outpatient supports, completion of a safety plan, and education on diagnoses. Pt has demonstrated improvement in condition with regard to improvement in mood and anxiety, increased hopefulness regarding school/research, resolution of SI, involvement of outpatient supports in family meeting, and completion of a safety plan. At this time, patient is requesting discharge and is no longer considered to be at acute risk of harm to himself or others. Pt will be discharged with recommendation for ongoing outpatient psychiatric treatment. Male: Yes : No Do You Have Access To A Gun?: No Health Problems: No Mental Health Diagnoses: Yes Substance Use Disorders: No Previous Attempt: No Previous Psychiatric Hospitalization: No Hopelessness: Yes Smoker: Yes Protective Factors Assessment : No Responsible for Young Children: No Employed: No Stable Relationships: Yes Supportive Family: Yes Tobacco Cessation at Discharge Tobacco Cessation Medication Prescribed at Discharge: Offered & Prescribed Practical counseling provided including: providing basic information about quitting Tobacco Cessation Outpatient Followup: Outpatient referral made to ([facility] for continued outpatient treatment ) Total Time Total Time Spent: Greater Than 30 Minutes Total Time Includes: Examination of the patient, Discharge Planning, Medication Reconciliation and Communication with other providers Discharge Data Lab Results 08/29/20 08/29/2020 18:22 18:22 18:22 WBC 9.30 RBC 5.49 Hgb 17.0 Hct 48.5 MCV 88.3 MCH 31.0 MCHC 35.1 RDW Std Deviation 39.0 RDW Coeff of Jett 12.2 Plt Count 244 MPV 11.2 H Immature Gran % (Auto) 0.5 Neut % (Auto) 75.2 Lymph % (Auto) 16.2 [place] % (Auto) 7.0 Eos % (Auto) 0.9 Baso % (Auto) 0.2 Neut # (Auto) 6.99 H Lymph # (Auto) 1.51 [place] # (Auto) 0.65 H Eos # (Auto) 0.08 Baso # (Auto) 0.02 Immature Gran # (Auto) 0.05 H Sodium 140 Potassium 3.5 Chloride 108 H Carbon Dioxide 26 Anion Gap 6.0 BUN 12 Creatinine 1.05 Est Cr Clr Drug Dosing 104.0 Est GFR ( Amer) 113.8 Est GFR (Non-Af Amer) 98.2 BUN/Creatinine Ratio 11.0 Glucose 123 H Calcium 8.9 Total Bilirubin 0.4 AST 10 L ALT 25 Alkaline Phosphatase 74 Total Protein 7.3 Albumin 4.2 Globulin 3.1 Albumin/Globulin Ratio 1.4 TSH 0.846 Urine Color Urine Appearance Urine pH Ur Specific [place] Urine Protein Urine Glucose (UA) Urine Ketones Urine Blood Urine Nitrite Urine Bilirubin Urine Urobilinogen Ur Leukocyte Esterase Salicylates < 1.7 L Urine Opiates Screen Ur Methadone, Qual Acetaminophen < 2 L Urine Barbiturates Ur Phencyclidine (PCP) U Amphetamin/Meth Scrn MDMA (Ecstasy) Screen U Benzodiazepines Scrn Ur Cocaine Metabolite U Marijuana (THC) Screen Ethyl Alcohol mg/dL COVID-19 Eval Order SARS-CoV-2, RNA, NAAT 08/29/20 08/29/20 08/29/20 18:22 18:45 18:45 WBC RBC Hgb Hct MCV MCH MCHC RDW Std Deviation RDW Coeff of Jett Plt Count MPV Immature Gran % (Auto) Neut % (Auto) Lymph % (Auto) [place] % (Auto) Eos % (Auto) Baso % (Auto) Neut # (Auto) Lymph # (Auto) [place] # (Auto) Eos # (Auto) Baso # (Auto) Immature Gran # (Auto) Sodium Potassium Chloride Carbon Dioxide Anion Gap BUN Creatinine Est Cr Clr Drug Dosing Est GFR ( Amer) Est GFR (Non-Af Amer) BUN/Creatinine Ratio Glucose Calcium Total Bilirubin AST ALT Alkaline Phosphatase Total Protein Albumin Globulin Albumin/Globulin Ratio TSH Urine Color Yellow Urine Appearance Clear Urine pH 6.5 Ur Specific [place] 1.028 Urine Protein Negative Urine Glucose (UA) Negative Urine Ketones Negative Urine Blood Negative Urine Nitrite Negative Urine Bilirubin Negative Urine Urobilinogen Negative Ur Leukocyte Esterase Negative Salicylates Urine Opiates Screen Neg Ur Methadone, Qual Neg Acetaminophen Urine Barbiturates Neg Ur Phencyclidine (PCP) Neg U Amphetamin/Meth Scrn Neg MDMA (Ecstasy) Screen Neg U Benzodiazepines Scrn Neg Ur Cocaine Metabolite Neg U Marijuana (THC) Screen Neg Ethyl Alcohol mg/dL < 3.0 COVID-19 Eval Order SARS-CoV-2, RNA, NAAT 08/29/20 08/29/20 20:35 20:35 WBC RBC Hgb Hct MCV MCH MCHC RDW Std Deviation RDW Coeff of Jett Plt Count MPV Immature Gran % (Auto) Neut % (Auto) Lymph % (Auto) [place] % (Auto) Eos % (Auto) Baso % (Auto) Neut # (Auto) Lymph # (Auto) [place] # (Auto) Eos # (Auto) Baso # (Auto) Immature Gran # (Auto) Sodium Potassium Chloride Carbon Dioxide Anion Gap BUN Creatinine Est Cr Clr Drug Dosing Est GFR ( Amer) Est GFR (Non-Af Amer) BUN/Creatinine Ratio Glucose Calcium Total Bilirubin AST ALT Alkaline Phosphatase Total Protein Albumin Globulin Albumin/Globulin Ratio TSH Urine Color Urine Appearance Urine pH Ur Specific [place] Urine Protein Urine Glucose (UA) Urine Ketones Urine Blood Urine Nitrite Urine Bilirubin Urine Urobilinogen Ur Leukocyte Esterase Salicylates Urine Opiates Screen Ur Methadone, Qual Acetaminophen Urine Barbiturates Ur Phencyclidine (PCP) U Amphetamin/Meth Scrn MDMA (Ecstasy) Screen U Benzodiazepines Scrn Ur Cocaine Metabolite U Marijuana (THC) Screen Ethyl Alcohol mg/dL COVID-19 Eval Order Covid19 IDNow atMKYC SARS-CoV-2, RNA, NAAT NEGATIVE Hospital Course (1) Suicidal ideation: 08/30 - Continue voluntary hospitalization and suicide checks for safety - Encouraged group attendance and participation, work on healthy coping skills and discharge safety plan. - Recommend family meeting with parents who live in [place]. 08/31 - Denies active SI today, but reports continued concern regarding how he would deal with recurrence of SI - Pt admits he is not yet able to contract for safety outside of the hospital setting 09/01 - Family meeting with parents in [place]. (2) Depression: 08/30 - Reviewed diagnosis and treatment options, including medications and therapy. Discussed SSRIs, including escitalopram and sertraline. Reviewed risks, benefits, side effects, and what to expect from medication. He agreed to a trial of escitalopram, will start 10mg daily. - Reviewed sleep hygiene, and trial hydroxyzine 50mg hs. - Refer for outpatient psychiatric care, and coordinate with [facility] therapist. 08/31 - Continue current dosage of escitalopram 10mg qAM - titrating as tolerated/indicated, patient reported dizziness after taking the medication this morning which spontaneously resolved - Pt tolerated hydroxyzine last evening for sleep. We did discuss melatonin today, and patient was agreeable with having this available as an option as well. Reviewed sleep hygiene and behavioral strategies that will reinforce positive sleep cycle. - Family meeting with parents scheduled for tomorrow morning via phone - Pt is reportedly able to continue both therapy and medication management through [facility] 09/01 - Continue escitalopram 10mg daily, and continue to work on healthy coping skills and discharge planning. - Discussed option of switching medication to HS as he reports his head feels heavy, but he wants to wait and see how he feels today/tomorrow before changing it. 09/02 - Move escitalopram to HS to minimize daytime sedation. - Work on discharge safety plan Mental Health & Subst Abuse Tx Psychiatrist Name of Psychiatrist: KUNAL Milner Psychiatrist's Time of Appointment with Psychiatrist: appointment date/time to be given during therapy appointment on 09/06/2020 Psychiatric Appointment Comment: [address] [place] [address] Psychiatrist Release of Information: Obtained, Reviewed and Signed Therapist Name of Therapist: KUNAL Hollingsworth Therapist's Date of Therapist Appointment: 09/06/20 Time of Therapist Appointment: 9:00am Therapy Appointment Comment: [address] [place] [address] Therapist Release of Information: Obtained, Reviewed and Signed Budget Officer Name of Budget Officer: [facility] Care [facility] Advocacy - [facility] Phone Number for Budget Officer: [phone] Date of Appointment with Budget Officer: 09/04/20 Time of Appointment with Budget Officer: 11:00 a.m. Case Management Appointment Comment: Will call you Budget Officer Release of Information: Obtained, Reviewed and Signed Post Discharge Appointments Primary Care Physician Name Of Family Doctor: [facility] Primary Care Provider Appointment Comment: Please follow up as needed Primary Care Release of Information: Obtained, Reviewed and Signed Smoking Cessation Counseling Tobacco Cessation Medication Prescribed at Discharge: Offered & Prescribed Other #1: Name of Aftercare Appointment: Potential community resource: [employer] Phone Number of Aftercare Appointment: [phone] Aftercare Appointment Comment: [address] [facility] [place] [address]: Name of Aftercare Appointment: Potential community resource: [employer] Phone Number of Aftercare Appointment: [phone] Aftercare Appointment Comment: [address] [facility], [address]: Name of Aftercare Appointment: Potential community resource: [employer] Phone Number of Aftercare Appointment: [phone] Aftercare Appointment Comment: [address] [facility] Contact Information Discharge Discharge Address: Permanent Address: [address] [place] [address] Discharge Plan Discharge Items Patient Disposition: Home - Self-Care Reason For Visit: MDD Discharge Diagnosis: - Major depressive disorder Condition on Discharge: Fair Activity: Resume your previous activity Non-emergency contact: Primary Care Provider, Psychiatrist and Therapist Call non-emergency contact if: you have any medication questions and your symptoms worsen Follow-up/Referrals: [facility] [Primary Care Provider] - Diet: Regular Addtl Attending Provider Instructions: SPECIAL CARE INSTRUCTIONS: 1. Follow through with your scheduled aftercare appointments. If unable to keep an appointment, please call to reschedule. 2. Take your medication only as prescribed. Medication should not be changed or stopped without the approval of your doctor. In the event of worsening symptoms or concerns about side effects, contact your doctor immediately. 3. Utilize new healthy coping skills, anger management skills, and stress management skills learned during your hospitalization. Journal feelings and process them with a support person. Identify stressors or situations that may result in relapse, deterioration or inappropriate behaviors and develop a plan to deal with those issues. 4. If your coping skills are ineffective and you are in crisis, contact your outpatient providers for direction. If unable to reach your providers, please call the [facility] CRISIS LINE AT , go to the [facility] walk-in center at [address] [facility], [address], [place], or go to the closest Emergency Room. 5. Avoid alcohol and un-prescribed drugs. 6. You have been provided with the Mental Health Advance Directives Pamphlet for your review. AFTERCARE APPOINTMENTS: * Please call your insurance company prior to your scheduled appointment to confirm your aftercare providers are covered. Take your insurance information to your appointments. WHO TO CALL AND WHEN: Medical Emergencies: For questions or emergencies related to your hospital stay, please contact the Inpatient Behavioral Health Unit at [phone]. A marker machine is on-call 18/05 for the Behavioral Health Unit for emergencies At any time you feel your situation is an emergency, you may also call 911 immediately. Pending Studies at Discharge: No Stand-Alone Forms: [facility], Smoking Cessation Medications and DC Order Prescriptions: New melatonin 3 mg Tablet 6 mg PO HS PRN (Reason: insomnia) 30 Days Qty: 30 RF: 0 escitalopram oxalate 10 mg Tablet 10 mg PO HS 30 Days Qty: 30 RF: 0 nicotine 14 mg/24 hr patch 24 hour 14 mg transdermal QAM 30 Days Qty: 28 RF: 0 No Action No Known Home Medications RF: 0 Discharge Orders: Discharge Order (Routine); Ordered 09/03/20 Ordered By: Rosa Moeller Admission Data Admit Date/Time: 08/29/20 21:37 Attending Provider: Marlena Vallejo Admit Provider: Kassandra Camarillo Primary Care Provider: [facility] Other Interventions: PSY Interdisciplinary Discharge Planning Last Done: 09/02/20 14:50 Coding Level of Care Code 06033 D/C day mgmt > 30 min Diagnoses Suicidal ideation R45.851 Depression F32.2 Active/Remission status: currently active Depression Type: major depressive disorder Major depression episode severity: severe Major depression recurrence: single episode Psychotic features: without psychotic features
[2020-09-03 11:04] VITALS: PULSE 67
== END 2020-09-03 11:25 | disposition home or self-care (01) | DRG 885 ==
LOC: ED 17:52 → 3S 21:37